=== PATIENT | male | born 1985 | race African-American/Black ===

== ENCOUNTER 2021-09-05 00:45 | Emergency (ER) | payer OTHER ==
[~2021-09-05] VITALS: Ht 185.4 cm; Wt 79.4 kg
[2021-09-05 01:06] LABS: CLARITY,URINE SL CLOUDY (CLEAR); COLOR,URINE AMBER (YELLOW); KETONES,URINE NEGATIVE (NEGATIVE); LEUKOCYTE ESTERASE ,URINE NEGATIVE (NEGATIVE); NITRITE,URINE NEGATIVE (NEGATIVE); PROTEIN,URINE DIPSTICK 2+ (NEGATIVE); URINE UROBILINOGEN 1 mg/dL (0.2 - 1)
[2021-09-05 01:11] LABS: BACTERIA,URINE RARE /HPF; EPITHELIAL CELLS,URINE RARE /LPF; MUCUS,URINE MANY (RARE); WBC,URINE (MAN) 0-5 /HPF (0-5)
[2021-09-05] MEDS ORDERED: AZITHROMYCIN 250 MG TAB PO STA (01:14)
[2021-09-05] MEDS ORDERED: CEFTRIAXONE 500 MG VIAL IM ONE (01:15)
[2021-09-05] MEDS ORDERED: AZITHROMYCIN 250 MG TAB ONE (01:28)
[2021-09-05] MEDS ORDERED: CEFTRIAXONE 1 GM VIAL ONE (01:28)
[2021-09-05] MEDS ORDERED: LIDOCAINE HCL 1% 2 ML AMP ONE (01:29)
[2021-09-05] MEDS ORDERED: LIDOCAINE HCL 1% LOCAL INJ 20 ML VIAL INJ ONE (01:30)
== END 2021-09-05 01:59 | disposition home or self-care (01) ==
LOC: ER 00:51
DX: R30.0 Dysuria (principal); F17.210 Nicotine dependence, cigarettes, uncomplicated
CPT/HCPCS: 81001; 99283; J0696; J2001